=== PATIENT | male | born 1995 | race Caucasian/White ===

== ENCOUNTER 2019-07-02 00:13 | Emergency (ER) | payer OTHER ==
[2019-07-02 00:21] VITALS: RESP 18
[2019-07-02] MEDS ORDERED: LIDOCAINE 1% INJ 10MG/ML (20 ML MDV) SQ STA (00:39)
--- NOTE | 2019-07-02 01:28 | CT ---
EXAMINATION TYPE: CT brain cspine wo con DATE OF EXAM: 07/02/2019 COMPARISON: None HISTORY: Left side facial trauma, left supraorbital laceration from boxing. CT DLP: 826.40 mGycm Automated exposure control for dose reduction was used. Ventricles and sulci appear normal. There is no mass effect nor midline shift. There is no sign of in tracranial hemorrhage. Calvarium is intact. Cervical vertebra have normal spacing and alignment. Posterior elements are intact. Facet joints are intact. Skull base is intact. IMPRESSION: Normal head CT scan. Normal CT scan of the cervical spine.
--- NOTE | 2019-07-02 01:38 | CT ---
EXAMINATION TYPE: CT facial bones wo con DATE OF EXAM: 07/02/2019 COMPARISON: HISTORY: Left side facial trauma, left supraorbital laceration from boxing. CT DLP: 460.90 mGycm Automated exposure control for dose reduction was used. Multiple axial sections were obtained from the bottom of the mandible to the top of the frontal sinus es without contrast. Orbital margins are intact. There is no evidence of retro-orbital mass. There is left side periorbita l soft tissue swelling. There is soft tissue swelling anterior to the left zygoma. There is normal ae ration of the paranasal sinuses. Zygomatic arches appear normal. Maxilla is intact. Nasal bone is int act. There is normal aeration of the temporal bones. Mandibular ring is intact. Temporomandibular wei nts appear normal. IMPRESSION: Left side periorbital soft tissue swelling. No fracture seen. No evidence of blowout fracture.
--- NOTE | 2019-07-02 02:19 | ED ---
General Adult HPI - General Chief complaint: Wound/Laceration Stated complaint: Head Injury Time Seen by Provider: 07/02/19 00:22 Source: patient, RN notes reviewed, old records reviewed Mode of arrival: ambulatory Limitations: no limitations - History of Present Illness Initial comments: 23-year-old male patient presents to ED for chief complaint of laceration of the left eye. Patient reports that he was sparring with his friend other drinking alcohol. Patient force that he leaned into a punch. Patient denies any loss of consciousness however does report that he has a laceration above his left eye. In triage patient did reportedly had an episode of nausea and vomiting have patient reports that is due to the alcoholic drink earlier. Denies any neck pain changes in vision or any other complaints. Denies any headache. States the tetanus is up-to-date. Systemic: Pt denies fatigue, fever/chills, rash. Pt denies weakness, night sweats, weight loss. Neuro: Pt denies headache, visual disturbances, syncope or pre-syncope. HEENT: Pt denies ocular discharge or irritation, otalgia, rhinorrhea, pharyngitis or notable lymphadenopathy. Cardiopulmonary: Pt denies chest pain, SOB, heart palpitations, dyspnea on exertion. Abdominal/GI: Pt denies abdominal pain, n/v/d. : Pt denies dysuria, burning w/ urination, frequency/urgency. Denies new onset urinary or bowel incontinence. MSK: Pt denies myalgia, loss of strength or function in extremities. Neuro: Pt denies new onset weakness, paresthesias. - Related Data Home Medications Medication Instructions Recorded Confirmed Ibuprofen [Advil] 200 - 600 mg PO DAILY PRN 08/01/15 08/01/15 Allergies Allergy/AdvReac Type Severity Reaction Status Date / Time orange juice [[place] Juice] Allergy Severe Swelling Verified 07/02/19 00:21 D and C orange no.4 Allergy Swelling Verified 07/02/19 00:21 orange (food color) Allergy Swelling Verified 07/02/19 00:21 sweet orange Allergy Swelling Verified 07/02/19 00:21 Review of Systems ROS Statement: Those systems with pertinent positive or pertinent negative responses have been documented in the HPI. ROS Other: All systems not noted in ROS Statement are negative. Past Medical History Past Medical History: Asthma, Seizure Disorder History of Any Multi-Drug Resistant Organisms: None Reported Past Surgical History: Adenoidectomy, Tonsillectomy Past Psychological History: Anxiety, Depression Smoking Status: Current every day smoker Past Alcohol Use History: Daily Past Drug Use History: None Reported General Exam - General Exam Comments Initial Comments: Constitutional: NAD, AOX3, Pt has pleasant affect. HEENT: NC/AT, trachea midline, neck supple, no lymphadenopathy. Posterior pharynx non erythematous, without exudates. External ears appear normal, without discharge. Mucous membranes moist. Eyes PERRLA, EOM intact. There is no scleral icterus. No pallor noted. Cardiopulmonary: RRR, no murmurs, rubs or gallops, no JVD noted. Lungs CTAB in anterior and posterior guidry. No peripheral edema. Abdominal exam: Abdomen soft and non-distended. Abdomen non-tender to palpation in all 4 quadrants. Bowel sounds active in LLQ. No hepatosplenomegaly. No ecchymosis Neuro: CN II-XII intact. No nuchal rigidity. No goodman sign, no hemotympanum. No cervical spinal tenderness. MSK: 3 cm laceration above left eye left eyebrow. No involvement to eye. Vigorously irrigated and approximated with 4 simple interrupted sutures. Localized edema and ecchymoses around left periorbital region. No posterior calf tenderness bilaterally, homans sign negative bilaterally. Posterior tibialis and radial pulse +2 bilaterally. Sensation intact in upper and lower extremities. Full active ROM in upper and lower extremities, 5/5 stregnth. Limitations: no limitations Course Vital Signs 07/02/19 00:19 Temperature 97.9 F Pulse Rate 105 H Respiratory 18 Rate Blood Pressure 131/87 O2 Sat by Pulse 98 Oximetry Procedures - Laceration Laceration #1 Consent Obtained: verbal consent Site: face (left eyebrow) Size (cm): 3 Description: linear Depth: simple, single layer Anesthetic Used: lidocaine 1% Anesthesia Technique: local infiltration Amount (mls): 2 Pre-repair: wound explored, irrigated extensively, deep structures intact Type of Sutures: nylon Size of Sutures: 6-0 Number of Sutures: 4 Patient Tolerated Procedure: well, no complications Medical Decision Making - Medical Decision Making 23-year-old male patient presents to ED for chief complaint of laceration of the left eye. Patient reports that he was sparring with his friend other drinking alcohol. Patient force that he leaned into a punch. Patient denies any loss of consciousness however does report that he has a laceration above his left eye. In triage patient did reportedly had an episode of nausea and vomiting have patient reports that is due to the alcoholic drink earlier. Denies any neck pain changes in vision or any other complaints. Denies any headache. States the tetanus is up-to-date. Patient vital signs are stable, afebrile. Physical exam displayed: 3 cm laceration above left eye left eyebrow. No involvement to eye. Vigorously irrigated and approximated with 4 simple interrupted sutures. Localized edema and ecchymoses around left periorbital region. CT brain C- spine, facial bones displayed left periorbital soft tissue swelling. No fracture seen. No evidence of blowout fracture. Patient will be discharged with follow-up with primary care provider and return to ER if condition worsens. Case discussed with Dr. Dietz. Disposition Clinical Impression: Laceration Disposition: HOME SELF-CARE Condition: Stable Instructions (If sedation given, give patient instructions): Laceration (ED) Additional Instructions: Follow-up with primary care provider tomorrow. Return to ER if condition worsens. Please return for suture removal: Hand: 7-10 days Face: 5 days Chest/abdomen: 12-14 days Extremities: 7-10 days Scalp: 7 days Eyebrow: 5-7 days Foot/sole: 12-14 days Please monitor for signs and symptoms of infection including: redness, warmth, drainage, discharge. Please return to ED if these signs or symptoms occur, new signs or symptoms develop or if condition worsens in anyway. Is patient prescribed a controlled substance at d/c from ED?: No Referrals: Marlo Choudhury MD [Primary Care Provider] - 1-2 days
[2019-07-02 02:30] VITALS: BP 125/80; PULSE 90; TEMP 98
== END 2019-07-02 02:31 | disposition home or self-care (01) ==
LOC: EC 00:13
DX: S05.12XA Contusion of eyeball and orbital tissues, left eye, initial encounter (principal); F17.200 Nicotine dependence, unspecified, uncomplicated; Z91.02 Food additives allergy status; Y04.0XXA Assault by unarmed brawl or fight, initial encounter; Y93.89 Activity, other specified
CPT/HCPCS: 99284; 12013; 72125; 70486; 70450; J2001